=== PATIENT | male | born 1975 | race Caucasian/White ===

== ENCOUNTER 2017-11-18 04:25 | Emergency (ER) | payer OTHER ==
[~2017-11-18] VITALS: Ht 175.3 cm; Wt 69.4 kg
[2017-11-18 04:33] VITALS: Ht 175.3 cm; Wt 69.4 kg
[2017-11-18 05:43] VITALS: BP 117/91
== END 2017-11-18 05:43 | disposition home or self-care (01) ==
LOC: ED 04:25
DX: M25.561 Pain in right knee (principal); Z76.0 Encounter for issue of repeat prescription; F32.9 Major depressive disorder, single episode, unspecified; F41.9 Anxiety disorder, unspecified